=== PATIENT | female | born 1980 ===

== ENCOUNTER 2018-12-09 08:33 | Inpatient (IN) | payer MEDICAID ==
[2018-12-09] MEDS ORDERED: SUBLIMAZE IV PRN (08:38)
[2018-12-09] MEDS ORDERED: BRETHINE SUB-Q PRN (08:38)
[2018-12-09] MEDS ORDERED: XYLOCAINE 2% INFILTRATI ONE (08:38)
[2018-12-09] MEDS ORDERED: MINERAL OIL PO PRN (08:38)
--- NOTE | 2018-12-09 08:51 | History and Physical Report ---
History of Present Illness Date of examination: 12/09/18 Date of admission: 12/09/18 08:33 Chief complaint: IOL for GDM on insulin History of present illness: EDC Confirmation: 12/22/2018 Past History : 8 Term Births: 4 Premature Births: 0 Living Children: 4 Para: 4 Mult. Births: 0 Prev : 0 Aborta: 3 Elect. Ab: 2 Spont. Ab: 1 # 1 Delivery date: 1999 Weeks Gestation: term Delivery type: Delivery location: [place] Inf[place] Sex: Male weight: 8#11 # 2 Delivery date: 2001 Weeks Gestation: term Delivery type: Delivery location: [place] Sex: Female weight: 6#11 # 3 Delivery date: 2012 Weeks Gestation: term Delivery type: Delivery location: [place] Inf[place] Sex: Female weight: 7#11 # 4 Delivery date: 2014 Weeks Gestation: term Delivery type: Delivery location: [place] Infant Sex: Female weight: 7#11 Risk Factors: Smoked Tobacco Use: Never smoker Smokeless Tobacco Use: Never Passive smoke exposure: no Drug use: no HIV high-risk behavior: no Alcohol use: no Exercise: no Seatbelt use: 100 % Family History Risk Factors: Family History of SC in females < 65 years old: no Family History of SC in males < 55 years old: no Dietary Counseling: pn yes Past Medical History: Fibroids Past Surgical History: negative Past Medical History Anesthesia Complications: negative Anemia: negative Autoimmune Disorder: negative Bleeding Disorder: negative Blood Transfusions: negative Breast Disease: negative Diabetes: negative Heart Disease: negative Hypertension: negative Hepatitis/Liver Disease: negative Kidney Disease/UTI: negative Neurologic/Epilepsy/Migraines: negative Phlebitis/Varicosities: negative Psychiatric: negative Pulmonary Disease/Asthma: negative Thyroid Disease: negative Hospitalizations: negative Surgery (Non-window treatment installer): negative Abnormal PAP: negative Family Hx: Mother - HTN father - DM Stomach cancer- maternal aunt 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 Infection History Hx of STD: none HIV Risk Eval: no Hepatitis B Risk Eval: low risk Varicella/Chicken Pox Status: Previous Disease Genetic History ADVANCED MATERNAL AGE Congenital Heart Defect: Mom: no Dad: no Adriana Disease: Mom: no Dad: no Thalassemia Mom: no Dad: no Neural Tube Defect Mom: no Dad: no Down's Syndrome Mom: no Dad: no Abimael-Sachs Mom: no Dad: no Sickle Cell Disease/Trait Mom: no Dad: no Hemophilia Mom: no Dad: no Muscular Dystrophy Mom: no Dad: no Cystic Fibrosis Mom: no Dad: no [place] Chorea Mom: no Dad: no Mental Retardation Mom: no Dad: no Fragile X Mom: no Dad: no Other Genetic/Chromosomal Disorder Mom: no Dad: no Child w/other defect Mom: no Dad: no Enviromental Exposures Xray Exposure: no Medication, drug, or alcohol use since LMP: no Chemical/Other Exposure: no Exposure to Cat Liter: no Hx of Parvovirus (Fifth Disease): no Occupational Exposure to Children: none Active Medications: None Current Allergies (reviewed today): No known allergies Past History Past Medical History: other (see HPI) Past Surgical History: other (see HPI) 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) Family/Genetic History: other (see HPI) - Obstetrical History Expected Date of Delivery: 12/22/18 Actual Gestation: 38 Week(s) 1 Day(s) : 8 Para: 4 Hx # Term Pregnancies: 4 Number of Pregnancies: 0 Spontaneous Abortions: 1 Induced : 2 Number of Living Children: 4 Medications and Allergies Allergies Allergy/AdvReac Type Severity Reaction Status Date / Time No Known Allergies Allergy Unverified 12/09/18 10:01 Home Medications Medication Instructions Recorded Confirmed Last Taken Type Insulin NPH Human Isophane 5 1000units SC ACHS 12/09/18 12/09/18 12/08/18 17:10 History [Humulin N] Insulin Regular, Human [Humulin R] 5 1000units SC AC 12/09/18 12/09/18 12/08/18 17:00 History Multivitamin Tablet 1 tab PO DAILY 12/09/18 12/09/18 12/08/18 10:00 History 1 Active Meds: Active Medications Ephedrine Sulfate (Ephedrine Sulfate) 10 mg IV Q2M PRN PRN Reason: Hypotension Fentanyl (Sublimaze) 100 mcg IV Q2H PRN PRN Reason: Labor Pain Lactated Ringer's (Lactated Ringers) 1,000 mls @ 125 mls/hr IV DIRECT ERIKA Oxytocin/Sodium Chloride (Pitocin/Ns 20 Unit/1000ml Drip) 20 units in 1,000 mls @ 125 mls/hr IV DIRECT ERIKA Oxytocin/Sodium Chloride (Pitocin/Ns 30 Unit/500ml) 30 units in 500 mls @ 1 mls/hr IV TITR ERIKA; Protocol Oxytocin/Sodium Chloride (Pitocin/Ns 30 Unit/500ml) 30 units in 500 mls @ 4 mls/hr IV TITR ERIKA; Protocol Ampicillin Sodium (Polycillin/Ns 2 Gm/100 Ml) 2 gm in 100 mls @ 100 mls/hr IV ONCE ONE; Protocol Stop: 12/09/18 09:59 Ampicillin Sodium (Ampicillin/Ns 1 Gm/50 Ml) 1 gm in 50 mls @ 100 mls/hr IV Q4HR ERIKA; Protocol Lidocaine (Xylocaine 2%) 20 ml INFILTRATI ONCE ONE Stop: 12/09/18 08:39 Mineral Oil (Mineral Oil) 30 ml PO QHS PRN PRN Reason: Constipation Terbutaline Sulfate (Brethine) 0.25 mg SUB-Q ONCE PRN PRN Reason: Hyperstimulation/Hypertonicity Review of Systems All systems: negative - Physical Exam Breasts: Positive: normal Cardiovascular: Regular rate Lungs: Positive: Clear to auscultation, Normal air movement Abdomen: Positive: normal appearance, soft Genitourinary (Female): Positive: normal external genitalia, normal perenium Vulva: both: normal Vagina: Positive: normal moisture Uterus: Positive: normal size Anus/Rectum: Positive: normal perianal skin Extremities: Positive: normal Deep Tendon Reflex Grade: Normal +2 - Obstetrical FHR: category 1 Uterine Contraction Monitor Mode: External Cervical Dilatation: 1 Cervical Effacement Percentage: 30 station: -2 Uterine Contraction Pattern: Irregular Uterine Tone Measurement Phase: Resting Results Result Diagrams: 12/09/18 10:10 All other labs normal. Assessment and Plan 38y/o 2 38+1 weeks for IOL d/t GDM on insulin. GBS +. Reviewed pplan of care and potential for serial IOL based on unfavorable cervix. Admission orders in EMR. pt verbalizes understanding, all questions addressed. - Patient Problems (1) GBS (group B Streptococcus carrier), +RV culture, currently Current Visit: Yes Status: Acute Plan to address problem: Ampicillin q4h until delivery (2) Gestational diabetes mellitus (GDM) requiring insulin Current Visit: Yes Status: Acute Plan to address problem: accucheck q2h while in labor (3) 38 weeks gestation of Current Visit: Yes Status: Acute
[2018-12-09] MEDS ORDERED: PITOCin/NS 30 UNIT/500ML 30 UNITS/500 ML BAG IV SCH (09:00)
[2018-12-09] MEDS ORDERED: PITOCin/NS 20 UNIT/1000ML DRIP 20 UNITS/1,000 ML BAG IV SCH (09:00)
[2018-12-09] MEDS ORDERED: AMPICILLIN/NS 2 GM/100 ML 2 GM/100 ML BAG IV ONE (09:00)
[2018-12-09 10:26] LABS: Hematocrit 34.5 % (30.3-42.9); Hemoglobin 11.7 gm/dl (10.1-14.3); Mean Corpuscular HGB Conc 34 % (30-34); Mean Corpuscular Volume 89 fl (79-97); Platelet Count 219 K/mm3 (140-440); Red Blood Count 3.88 M/mm3 (3.65-5.03); Red Cell Distribution Width 14.1 % (13.2-15.2)
[2018-12-09] MEDS: LACTATED RINGERS 1,000 ML IV SCH ×3 (10:39→18:17)
[2018-12-09] MEDS: PITOCin/NS 30 UNIT/500ML 30 UNITS/500 ML BAG IV SCH ×5 (10:47→13:35)
[2018-12-09] MEDS: AMPICILLIN/NS 1 GM/50 ML 1 GM/50 ML BAG IV SCH ×2 (14:58→19:16)
--- NOTE | 2018-12-09 17:13 | Progress Note ---
Assessment and Plan patient rates pain @ 8/10, pitocin currently @ 20mU. Discussed options for for patient to rest, eat dinner and shower then low dose pitocin tonight or continue with pitocin. Patient desires to continue pitocin and AROM. Pt desires epidural. AROM - clear fluid, ISE and IUP placed without difficulty. IVF open for pre- epidural bolus. nurse instructed to check blood sugar q2h. - Patient Problems (1) GBS (group B Streptococcus carrier), +RV culture, currently Current Visit: Yes Status: Acute (2) Gestational diabetes mellitus (GDM) requiring insulin Current Visit: Yes Status: Acute (3) 38 weeks gestation of Current Visit: Yes Status: Acute Subjective - Subjective Date of service: 12/09/18 Principal diagnosis: IUP @ 38+1, GDM on insulin, GBS + Interval history: EDC Confirmation: 12/22/2018 Past History : 8 Term Births: 4 Premature Births: 0 Living Children: 4 Para: 4 Mult. Births: 0 Prev : 0 Aborta: 3 Elect. Ab: 2 Spont. Ab: 1 # 1 Delivery date: 1999 Weeks Gestation: term Delivery type: Delivery location: [place] Sex: Male weight: 8#11 # 2 Delivery date: 2001 Weeks Gestation: term Delivery type: Delivery location: [place] Sex: Female weight: 6#11 # 3 Delivery date: 2012 Weeks Gestation: term Delivery type: Delivery location: [place] Sex: Female weight: 7#11 # 4 Delivery date: 2014 Weeks Gestation: term Delivery type: Delivery location: [place] Infant Sex: Female weight: 7#11 Risk Factors: Smoked Tobacco Use: Never smoker Smokeless Tobacco Use: Never Passive smoke exposure: no Drug use: no HIV high-risk behavior: no Alcohol use: no Exercise: no Seatbelt use: 100 % Family History Risk Factors: Family History of [place] in females < 65 years old: no Family History of OK in males < 55 years old: no Dietary Counseling: pn yes Past Medical History: Fibroids Past Surgical History: negative Past Medical History Anesthesia Complications: negative Anemia: negative Autoimmune Disorder: negative Bleeding Disorder: negative Blood Transfusions: negative Breast Disease: negative Diabetes: negative Heart Disease: negative Hypertension: negative Hepatitis/Liver Disease: negative Kidney Disease/UTI: negative Neurologic/Epilepsy/Migraines: negative Phlebitis/Varicosities: negative Psychiatric: negative Pulmonary Disease/Asthma: negative Thyroid Disease: negative Hospitalizations: negative Surgery (Non-etcher printed circuit boards): negative Abnormal PAP: negative Family Hx: Mother - HTN father - DM Stomach cancer- maternal aunt 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 Infection History Hx of STD: none HIV Risk Eval: no Hepatitis B Risk Eval: low risk Varicella/Chicken Pox Status: Previous Disease Genetic History ADVANCED MATERNAL AGE Congenital Heart Defect: Mom: no Dad: no Adriana Disease: Mom: no Dad: no Thalassemia Mom: no Dad: no Neural Tube Defect Mom: no Dad: no Down's Syndrome Mom: no Dad: no Abimael-Sachs Mom: no Dad: no Sickle Cell Disease/Trait Mom: no Dad: no Hemophilia Mom: no Dad: no Muscular Dystrophy Mom: no Dad: no Cystic Fibrosis Mom: no Dad: no [place] Chorea Mom: no Dad: no Mental Retardation Mom: no Dad: no Fragile X Mom: no Dad: no Other Genetic/Chromosomal Disorder Mom: no Dad: no Child w/other defect Mom: no Dad: no Enviromental Exposures Xray Exposure: no Medication, drug, or alcohol use since LMP: no Chemical/Other Exposure: no Exposure to Cat Liter: no Hx of Parvovirus (Fifth Disease): no Occupational Exposure to Children: none Active Medications: None Current Allergies (reviewed today): No known allergies Patient reports: movement normal, contractions (pt states she is ready for an epidural), no loss of fluid, no vaginal bleeding Objective - Vital Signs Vital Signs: Vital Signs - 12hr 12/09/18 12/09/18 12/09/18 09:09 09:14 09:19 Temperature 98.7 F Pulse Rate 105 H 104 H 112 H Respiratory 18 Rate Blood Pressure 107/63 Blood Pressure 107/63 [Left] O2 Sat by Pulse 97 94 93 Oximetry 12/09/18 12/09/18 12/09/18 09:22 09:24 09:28 Temperature Pulse Rate 106 H 112 H 116 H Respiratory Rate Blood Pressure Blood Pressure [Left] O2 Sat by Pulse 94 94 93 Oximetry 12/09/18 12/09/18 12/09/18 09:29 09:34 09:37 Temperature Pulse Rate 114 H 109 H 104 H Respiratory Rate Blood Pressure Blood Pressure [Left] O2 Sat by Pulse 95 95 94 Oximetry 12/09/18 12/09/18 12/09/18 09:39 09:42 09:44 Temperature Pulse Rate 114 H 104 H 104 H Respiratory Rate Blood Pressure Blood Pressure [Left] O2 Sat by Pulse 94 94 96 Oximetry 12/09/18 12/09/18 12/09/18 09:48 09:49 09:54 Temperature Pulse Rate 104 H 111 H 105 H Respiratory Rate Blood Pressure Blood Pressure [Left] O2 Sat by Pulse 94 95 94 Oximetry 12/09/18 12/09/18 12/09/18 09:59 10:12 10:13 Temperature Pulse Rate 112 H 96 H 119 H Respiratory Rate Blood Pressure 125/76 Blood Pressure [Left] O2 Sat by Pulse 94 91 96 Oximetry 12/09/18 12/09/18 12/09/18 10:18 10:20 10:23 Temperature Pulse Rate 104 H 105 H 106 H Respiratory Rate Blood Pressure Blood Pressure [Left] O2 Sat by Pulse 96 93 95 Oximetry 12/09/18 12/09/18 12/09/18 10:25 10:28 10:31 Temperature Pulse Rate 102 H 102 H 106 H Respiratory Rate Blood Pressure Blood Pressure [Left] O2 Sat by Pulse 94 96 93 Oximetry 12/09/18 12/09/18 12/09/18 10:33 10:37 10:38 Temperature Pulse Rate 105 H 94 H 97 H Respiratory Rate Blood Pressure Blood Pressure [Left] O2 Sat by Pulse 95 94 95 Oximetry 12/09/18 12/09/18 12/09/18 10:43 10:48 10:53 Temperature Pulse Rate 103 H 97 H 101 H Respiratory Rate Blood Pressure Blood Pressure [Left] O2 Sat by Pulse 94 94 95 Oximetry 12/09/18 12/09/18 12/09/18 10:54 10:58 11:11 Temperature Pulse Rate 100 H 102 H 106 H Respiratory Rate Blood Pressure Blood Pressure [Left] O2 Sat by Pulse 94 94 97 Oximetry 12/09/18 12/09/18 12/09/18 11:16 11:17 11:21 Temperature Pulse Rate 107 H 94 H 100 H Respiratory Rate Blood Pressure Blood Pressure [Left] O2 Sat by Pulse 96 94 95 Oximetry 12/09/18 12/09/18 12/09/18 11:23 11:26 11:30 Temperature Pulse Rate 103 H 99 H 104 H Respiratory Rate Blood Pressure Blood Pressure [Left] O2 Sat by Pulse 94 95 93 Oximetry 12/09/18 12/09/18 12/09/18 11:31 11:36 11:41 Temperature Pulse Rate 97 H 111 H 101 H Respiratory Rate Blood Pressure Blood Pressure [Left] O2 Sat by Pulse 96 96 96 Oximetry 12/09/18 12/09/18 12/09/18 11:43 11:46 11:51 Temperature Pulse Rate 91 H 102 H 94 H Respiratory Rate Blood Pressure Blood Pressure [Left] O2 Sat by Pulse 94 96 97 Oximetry 12/09/18 12/09/18 12/09/18 11:55 11:56 12:01 Temperature Pulse Rate 98 H 101 H 95 H Respiratory Rate Blood Pressure Blood Pressure [Left] O2 Sat by Pulse 94 96 97 Oximetry 12/09/18 12/09/18 12/09/18 12:04 12:06 12:10 Temperature Pulse Rate 101 H 98 H 100 H Respiratory Rate Blood Pressure 120/69 Blood Pressure [Left] O2 Sat by Pulse 93 97 Oximetry 12/09/18 12/09/18 12/09/18 12:11 12:15 12:16 Temperature Pulse Rate 102 H 105 H 86 Respiratory Rate Blood Pressure Blood Pressure [Left] O2 Sat by Pulse 96 94 95 Oximetry 12/09/18 12/09/18 12/09/18 12:21 12:26 12:31 Temperature Pulse Rate 90 92 H 95 H Respiratory Rate Blood Pressure Blood Pressure [Left] O2 Sat by Pulse 96 94 94 Oximetry 12/09/18 12/09/18 12/09/18 12:36 12:41 12:42 Temperature Pulse Rate 103 H 92 H 99 H Respiratory Rate Blood Pressure Blood Pressure [Left] O2 Sat by Pulse 96 96 94 Oximetry 12/09/18 12/09/18 12/09/18 12:46 12:51 12:52 Temperature Pulse Rate 87 89 90 Respiratory Rate Blood Pressure Blood Pressure [Left] O2 Sat by Pulse 97 95 94 Oximetry 12/09/18 12/09/18 12/09/18 12:56 12:58 13:01 Temperature Pulse Rate 94 H 94 H 94 H Respiratory Rate Blood Pressure Blood Pressure [Left] O2 Sat by Pulse 94 94 96 Oximetry 12/09/18 12/09/18 12/09/18 13:06 13:11 13:16 Temperature Pulse Rate 98 H 102 H 85 Respiratory Rate Blood Pressure 132/93 Blood Pressure [Left] O2 Sat by Pulse 95 93 96 Oximetry 12/09/18 12/09/18 12/09/18 13:21 13:31 13:33 Temperature Pulse Rate 99 H 86 87 Respiratory Rate Blood Pressure Blood Pressure [Left] O2 Sat by Pulse 95 96 94 Oximetry 12/09/18 12/09/18 12/09/18 13:36 13:41 13:46 Temperature Pulse Rate 90 88 87 Respiratory Rate Blood Pressure Blood Pressure [Left] O2 Sat by Pulse 95 96 95 Oximetry 12/09/18 12/09/18 12/09/18 13:51 13:55 13:56 Temperature Pulse Rate 89 97 H 94 H Respiratory Rate Blood Pressure Blood Pressure [Left] O2 Sat by Pulse 96 94 95 Oximetry 12/09/18 12/09/18 12/09/18 14:01 14:05 14:06 Temperature 98.4 F Pulse Rate 98 H 92 H 87 Respiratory Rate Blood Pressure Blood Pressure [Left] O2 Sat by Pulse 96 97 Oximetry 12/09/18 12/09/18 12/09/18 14:11 14:16 14:20 Temperature Pulse Rate 92 H 86 96 H Respiratory Rate Blood Pressure 129/75 Blood Pressure [Left] O2 Sat by Pulse 92 97 94 Oximetry 12/09/18 12/09/18 12/09/18 14:21 14:26 14:30 Temperature Pulse Rate 85 96 H 85 Respiratory Rate Blood Pressure Blood Pressure [Left] O2 Sat by Pulse 94 95 94 Oximetry 12/09/18 12/09/18 12/09/18 14:31 14:36 14:37 Temperature Pulse Rate 106 H 89 89 Respiratory Rate Blood Pressure Blood Pressure [Left] O2 Sat by Pulse 98 95 94 Oximetry 12/09/18 12/09/18 12/09/18 14:41 14:42 14:46 Temperature Pulse Rate 89 83 86 Respiratory Rate Blood Pressure Blood Pressure [Left] O2 Sat by Pulse 96 94 94 Oximetry 12/09/18 12/09/18 12/09/18 14:48 14:51 14:53 Temperature Pulse Rate 81 91 H 85 Respiratory Rate Blood Pressure Blood Pressure [Left] O2 Sat by Pulse 94 94 94 Oximetry 12/09/18 12/09/18 12/09/18 14:56 14:58 15:01 Temperature Pulse Rate 85 86 87 Respiratory Rate Blood Pressure Blood Pressure [Left] O2 Sat by Pulse 95 94 95 Oximetry 12/09/18 12/09/18 12/09/18 15:04 15:06 15:10 Temperature Pulse Rate 92 H 83 99 H Respiratory Rate Blood Pressure 130/79 Blood Pressure [Left] O2 Sat by Pulse 91 94 92 Oximetry 12/09/18 12/09/18 12/09/18 15:11 15:16 15:21 Temperature Pulse Rate 91 H 93 H 79 Respiratory Rate Blood Pressure Blood Pressure [Left] O2 Sat by Pulse 95 94 93 Oximetry 12/09/18 12/09/18 12/09/18 15:26 15:31 15:36 Temperature Pulse Rate 103 H 84 85 Respiratory Rate Blood Pressure Blood Pressure [Left] O2 Sat by Pulse 93 94 94 Oximetry 12/09/18 12/09/18 12/09/18 15:39 15:41 15:53 Temperature Pulse Rate 95 H 96 H 106 H Respiratory Rate Blood Pressure Blood Pressure [Left] O2 Sat by Pulse 94 95 97 Oximetry 12/09/18 12/09/18 12/09/18 15:58 16:03 16:08 Temperature Pulse Rate 85 87 85 Respiratory Rate Blood Pressure Blood Pressure [Left] O2 Sat by Pulse 96 96 96 Oximetry 12/09/18 12/09/18 12/09/18 16:10 16:11 16:13 Temperature Pulse Rate 98 H 80 92 H Respiratory Rate Blood Pressure 142/73 126/59 Blood Pressure [Left] O2 Sat by Pulse 92 97 Oximetry 12/09/18 12/09/18 12/09/18 16:18 16:23 16:28 Temperature Pulse Rate 83 86 101 H Respiratory Rate Blood Pressure Blood Pressure [Left] O2 Sat by Pulse 97 95 96 Oximetry 12/09/18 12/09/18 12/09/18 16:33 16:37 16:38 Temperature Pulse Rate 91 H 97 H 105 H Respiratory Rate Blood Pressure Blood Pressure [Left] O2 Sat by Pulse 97 94 97 Oximetry 12/09/18 12/09/18 12/09/18 16:43 16:48 16:53 Temperature Pulse Rate 92 H 98 H 104 H Respiratory Rate Blood Pressure Blood Pressure [Left] O2 Sat by Pulse 98 97 96 Oximetry 12/09/18 16:58 Temperature Pulse Rate 104 H Respiratory Rate Blood Pressure Blood Pressure [Left] O2 Sat by Pulse 97 Oximetry - Exam Breasts: normal Cardiovascular: Regular rate Lungs: Clear to auscultation, Normal air movement Abdomen: Present: normal appearance, soft Vulva: both: normal Uterus: Present: normal FHR: auscultation normal Uterine Contraction Monitor Mode: Internal Cervical Dilatation: 3 Cervical Effacement Percentage: 80 station: -1 Uterine Contraction Frequency (min): 2-3 Uterine Contraction Duration: 60 Uterine Contraction Pattern: Regular Uterine Tone Measurement Phase: Contraction Uterine Contraction Intensity: Strong/Firm Uterine Tone Measurement (Intensity): 70 Extremities: normal Deep Tendon Reflex Grade: Normal +2 - Labs Labs: Laboratory Results - last 24 hr 12/09/18 12/09/18 12/09/18 10:10 10:10 10:10 WBC 8.7 RBC 3.88 Hgb 11.7 Hct 34.5 MCV 89 MCH 30 MCHC 34 RDW 14.1 Plt Count 219 POC Glucose RPR Nonreactive Blood Type O POSITIVE Antibody Screen Negative 12/09/18 11:49 WBC RBC Hgb Hct MCV MCH MCHC RDW Plt Count POC Glucose 94 RPR Blood Type Antibody Screen
[2018-12-09] MEDS ORDERED: NARCAN 2 MG/2 ML IV PRN (17:44)
--- NOTE | 2018-12-09 17:47 | Anesthesia Consultation ---
Anesthesia Consult and Med Hx - Airway Anesthetic Teeth Evaluation: Good ROM Head & Neck: Adequate Mental/Hyoid Distance: Adequate Mallampati Class: Class I Intubation Access Assessment: Good - Pulmonary Exam CTA: Yes - Cardiac Exam Cardiac Exam: RRR - Pre-Operative Health Status ASA Pre-Surgery Classification: ASA2 Proposed Anesthetic Plan: Epidural - Pulmonary Hx Asthma: No COPD: No Hx Pneumonia: No - Cardiovascular System Hx Hypertension: No - Central Nervous System Hx Seizures: No Hx Psychiatric Problems: No - Endocrine Hx Renal Disease: No Hx End Stage Renal Disease: No Hx Insulin Dependent Diabetes: Yes (during ) Hx Hypothyroidism: No Hx Hyperthyroidism: No - Hematic Hx Anemia: No Hx Sickle Cell Disease: No - Other Systems Hx Alcohol Use: No
[2018-12-09] MEDS ORDERED: MARCAINE 0.25% INFILTRATI ONE (17:51)
[2018-12-09] MEDS ORDERED: fentaNYL-BUPIV 2 MCG/ML-0.125% 200 MCG/100 ML BAG EPIDURAL SCH (18:00)
--- NOTE | 2018-12-09 18:35 | Progress Note ---
Assessment and Plan pt comfortable s/p epidural, SVE now 4.5/85/-1 with clear fluid. Plan to continue titrating pitocin as needed. Anticipate . - Patient Problems (1) GBS (group B Streptococcus carrier), +RV culture, currently Current Visit: Yes Status: Acute (2) Gestational diabetes mellitus (GDM) requiring insulin Current Visit: Yes Status: Acute (3) 38 weeks gestation of Current Visit: Yes Status: Acute Subjective - Subjective Date of service: 12/09/18 Principal diagnosis: IUP @ 38+1, GDM on insulin, GBS + Interval history: EDC Confirmation: 12/22/2018 Past History : 8 Term Births: 4 Premature Births: 0 Living Children: 4 Para: 4 Mult. Births: 0 Prev : 0 Aborta: 3 Elect. Ab: 2 Spont. Ab: 1 # 1 Delivery date: 1999 Weeks Gestation: term Delivery type: Delivery location: [place] Sex: Male weight: 8#11 # 2 Delivery date: 2001 Weeks Gestation: term Delivery type: Delivery location: [place] Sex: Female weight: 6#11 # 3 Delivery date: 2012 Weeks Gestation: term Delivery type: Delivery location: [place] Sex: Female weight: 7#11 # 4 Delivery date: 2014 Weeks Gestation: term Delivery type: Delivery location: [place] Sex: Female weight: 7#11 Risk Factors: Smoked Tobacco Use: Never smoker Smokeless Tobacco Use: Never Passive smoke exposure: no Drug use: no HIV high-risk behavior: no Alcohol use: no Exercise: no Seatbelt use: 100 % Family History Risk Factors: Family History of NE in females < 65 years old: no Family History of NE in males < 55 years old: no Dietary Counseling: pn yes Past Medical History: Fibroids Past Surgical History: negative Past Medical History Anesthesia Complications: negative Anemia: negative Autoimmune Disorder: negative Bleeding Disorder: negative Blood Transfusions: negative Breast Disease: negative Diabetes: negative Heart Disease: negative Hypertension: negative Hepatitis/Liver Disease: negative Kidney Disease/UTI: negative Neurologic/Epilepsy/Migraines: negative Phlebitis/Varicosities: negative Psychiatric: negative Pulmonary Disease/Asthma: negative Thyroid Disease: negative Hospitalizations: negative Surgery (Non-webmethods architect): negative Abnormal PAP: negative Family Hx: Mother - HTN father - DM Stomach cancer- maternal aunt 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 Infection History Hx of STD: none HIV Risk Eval: no Hepatitis B Risk Eval: low risk Varicella/Chicken Pox Status: Previous Disease Genetic History ADVANCED MATERNAL AGE Congenital Heart Defect: Mom: no Dad: no Adriana Disease: Mom: no Dad: no Thalassemia Mom: no Dad: no Neural Tube Defect Mom: no Dad: no Down's Syndrome Mom: no Dad: no Abimael-Sachs Mom: no Dad: no Sickle Cell Disease/Trait Mom: no Dad: no Hemophilia Mom: no Dad: no Muscular Dystrophy Mom: no Dad: no Cystic Fibrosis Mom: no Dad: no [place] Chorea Mom: no Dad: no Mental Retardation Mom: no Dad: no Fragile X Mom: no Dad: no Other Genetic/Chromosomal Disorder Mom: no Dad: no Child w/other defect Mom: no Dad: no Enviromental Exposures Xray Exposure: no Medication, drug, or alcohol use since LMP: no Chemical/Other Exposure: no Exposure to Cat Liter: no Hx of Parvovirus (Fifth Disease): no Occupational Exposure to Children: none Active Medications: None Current Allergies (reviewed today): No known allergies Patient reports: no new complaints (Comfortable s/p epidural) Objective - Vital Signs Vital Signs: Vital Signs - 12hr 12/09/18 12/09/18 12/09/18 09:09 09:14 09:19 Temperature 98.7 F Pulse Rate 105 H 104 H 112 H Respiratory 18 Rate Blood Pressure 107/63 Blood Pressure 107/63 [Left] O2 Sat by Pulse 97 94 93 Oximetry 12/09/18 12/09/18 12/09/18 09:22 09:24 09:28 Temperature Pulse Rate 106 H 112 H 116 H Respiratory Rate Blood Pressure Blood Pressure [Left] O2 Sat by Pulse 94 94 93 Oximetry 12/09/18 12/09/18 12/09/18 09:29 09:34 09:37 Temperature Pulse Rate 114 H 109 H 104 H Respiratory Rate Blood Pressure Blood Pressure [Left] O2 Sat by Pulse 95 95 94 Oximetry 12/09/18 12/09/18 12/09/18 09:39 09:42 09:44 Temperature Pulse Rate 114 H 104 H 104 H Respiratory Rate Blood Pressure Blood Pressure [Left] O2 Sat by Pulse 94 94 96 Oximetry 12/09/18 12/09/18 12/09/18 09:48 09:49 09:54 Temperature Pulse Rate 104 H 111 H 105 H Respiratory Rate Blood Pressure Blood Pressure [Left] O2 Sat by Pulse 94 95 94 Oximetry 12/09/18 12/09/18 12/09/18 09:59 10:12 10:13 Temperature Pulse Rate 112 H 96 H 119 H Respiratory Rate Blood Pressure 125/76 Blood Pressure [Left] O2 Sat by Pulse 94 91 96 Oximetry 12/09/18 12/09/18 12/09/18 10:18 10:20 10:23 Temperature Pulse Rate 104 H 105 H 106 H Respiratory Rate Blood Pressure Blood Pressure [Left] O2 Sat by Pulse 96 93 95 Oximetry 12/09/18 12/09/18 12/09/18 10:25 10:28 10:31 Temperature Pulse Rate 102 H 102 H 106 H Respiratory Rate Blood Pressure Blood Pressure [Left] O2 Sat by Pulse 94 96 93 Oximetry 12/09/18 12/09/18 12/09/18 10:33 10:37 10:38 Temperature Pulse Rate 105 H 94 H 97 H Respiratory Rate Blood Pressure Blood Pressure [Left] O2 Sat by Pulse 95 94 95 Oximetry 12/09/18 12/09/18 12/09/18 10:43 10:48 10:53 Temperature Pulse Rate 103 H 97 H 101 H Respiratory Rate Blood Pressure Blood Pressure [Left] O2 Sat by Pulse 94 94 95 Oximetry 12/09/18 12/09/18 12/09/18 10:54 10:58 11:11 Temperature Pulse Rate 100 H 102 H 106 H Respiratory Rate Blood Pressure Blood Pressure [Left] O2 Sat by Pulse 94 94 97 Oximetry 12/09/18 12/09/18 12/09/18 11:16 11:17 11:21 Temperature Pulse Rate 107 H 94 H 100 H Respiratory Rate Blood Pressure Blood Pressure [Left] O2 Sat by Pulse 96 94 95 Oximetry 12/09/18 12/09/18 12/09/18 11:23 11:26 11:30 Temperature Pulse Rate 103 H 99 H 104 H Respiratory Rate Blood Pressure Blood Pressure [Left] O2 Sat by Pulse 94 95 93 Oximetry 12/09/18 12/09/18 12/09/18 11:31 11:36 11:41 Temperature Pulse Rate 97 H 111 H 101 H Respiratory Rate Blood Pressure Blood Pressure [Left] O2 Sat by Pulse 96 96 96 Oximetry 12/09/18 12/09/18 12/09/18 11:43 11:46 11:51 Temperature Pulse Rate 91 H 102 H 94 H Respiratory Rate Blood Pressure Blood Pressure [Left] O2 Sat by Pulse 94 96 97 Oximetry 12/09/18 12/09/18 12/09/18 11:55 11:56 12:01 Temperature Pulse Rate 98 H 101 H 95 H Respiratory Rate Blood Pressure Blood Pressure [Left] O2 Sat by Pulse 94 96 97 Oximetry 12/09/18 12/09/18 12/09/18 12:04 12:06 12:10 Temperature Pulse Rate 101 H 98 H 100 H Respiratory Rate Blood Pressure 120/69 Blood Pressure [Left] O2 Sat by Pulse 93 97 Oximetry 12/09/18 12/09/18 12/09/18 12:11 12:15 12:16 Temperature Pulse Rate 102 H 105 H 86 Respiratory Rate Blood Pressure Blood Pressure [Left] O2 Sat by Pulse 96 94 95 Oximetry 12/09/18 12/09/18 12/09/18 12:21 12:26 12:31 Temperature Pulse Rate 90 92 H 95 H Respiratory Rate Blood Pressure Blood Pressure [Left] O2 Sat by Pulse 96 94 94 Oximetry 12/09/18 12/09/18 12/09/18 12:36 12:41 12:42 Temperature Pulse Rate 103 H 92 H 99 H Respiratory Rate Blood Pressure Blood Pressure [Left] O2 Sat by Pulse 96 96 94 Oximetry 12/09/18 12/09/18 12/09/18 12:46 12:51 12:52 Temperature Pulse Rate 87 89 90 Respiratory Rate Blood Pressure Blood Pressure [Left] O2 Sat by Pulse 97 95 94 Oximetry 12/09/18 12/09/18 12/09/18 12:56 12:58 13:01 Temperature Pulse Rate 94 H 94 H 94 H Respiratory Rate Blood Pressure Blood Pressure [Left] O2 Sat by Pulse 94 94 96 Oximetry 12/09/18 12/09/18 12/09/18 13:06 13:11 13:16 Temperature Pulse Rate 98 H 102 H 85 Respiratory Rate Blood Pressure 132/93 Blood Pressure [Left] O2 Sat by Pulse 95 93 96 Oximetry 12/09/18 12/09/18 12/09/18 13:21 13:31 13:33 Temperature Pulse Rate 99 H 86 87 Respiratory Rate Blood Pressure Blood Pressure [Left] O2 Sat by Pulse 95 96 94 Oximetry 04/25/19 04/25/19 04/25/19 13:36 13:41 13:46 Temperature Pulse Rate 90 88 87 Respiratory Rate Blood Pressure Blood Pressure [Left] O2 Sat by Pulse 95 96 95 Oximetry 12/09/18 12/09/18 12/09/18 13:51 13:55 13:56 Temperature Pulse Rate 89 97 H 94 H Respiratory Rate Blood Pressure Blood Pressure [Left] O2 Sat by Pulse 96 94 95 Oximetry 12/09/18 12/09/18 12/09/18 14:01 14:05 14:06 Temperature 98.4 F Pulse Rate 98 H 92 H 87 Respiratory Rate Blood Pressure Blood Pressure [Left] O2 Sat by Pulse 96 97 Oximetry 12/09/18 12/09/18 12/09/18 14:11 14:16 14:20 Temperature Pulse Rate 92 H 86 96 H Respiratory Rate Blood Pressure 129/75 Blood Pressure [Left] O2 Sat by Pulse 92 97 94 Oximetry 12/09/18 12/09/18 12/09/18 14:21 14:26 14:30 Temperature Pulse Rate 85 96 H 85 Respiratory Rate Blood Pressure Blood Pressure [Left] O2 Sat by Pulse 94 95 94 Oximetry 12/09/18 12/09/18 12/09/18 14:31 14:36 14:37 Temperature Pulse Rate 106 H 89 89 Respiratory Rate Blood Pressure Blood Pressure [Left] O2 Sat by Pulse 98 95 94 Oximetry 12/09/18 12/09/18 12/09/18 14:41 14:42 14:46 Temperature Pulse Rate 89 83 86 Respiratory Rate Blood Pressure Blood Pressure [Left] O2 Sat by Pulse 96 94 94 Oximetry 12/09/18 12/09/18 12/09/18 14:48 14:51 14:53 Temperature Pulse Rate 81 91 H 85 Respiratory Rate Blood Pressure Blood Pressure [Left] O2 Sat by Pulse 94 94 94 Oximetry 12/09/18 12/09/18 12/09/18 14:56 14:58 15:01 Temperature Pulse Rate 85 86 87 Respiratory Rate Blood Pressure Blood Pressure [Left] O2 Sat by Pulse 95 94 95 Oximetry 12/09/18 12/09/18 12/09/18 15:04 15:06 15:10 Temperature Pulse Rate 92 H 83 99 H Respiratory Rate Blood Pressure 130/79 Blood Pressure [Left] O2 Sat by Pulse 91 94 92 Oximetry 12/09/18 12/09/18 12/09/18 15:11 15:16 15:21 Temperature Pulse Rate 91 H 93 H 79 Respiratory Rate Blood Pressure Blood Pressure [Left] O2 Sat by Pulse 95 94 93 Oximetry 12/09/18 12/09/18 12/09/18 15:26 15:31 15:36 Temperature Pulse Rate 103 H 84 85 Respiratory Rate Blood Pressure Blood Pressure [Left] O2 Sat by Pulse 93 94 94 Oximetry 12/09/18 12/09/18 12/09/18 15:39 15:41 15:53 Temperature Pulse Rate 95 H 96 H 106 H Respiratory Rate Blood Pressure Blood Pressure [Left] O2 Sat by Pulse 94 95 97 Oximetry 12/09/18 12/09/18 12/09/18 15:58 16:03 16:08 Temperature Pulse Rate 85 87 85 Respiratory Rate Blood Pressure Blood Pressure [Left] O2 Sat by Pulse 96 96 96 Oximetry 12/09/18 12/09/18 12/09/18 16:10 16:11 16:13 Temperature Pulse Rate 98 H 80 92 H Respiratory Rate Blood Pressure 142/73 126/59 Blood Pressure [Left] O2 Sat by Pulse 92 97 Oximetry 12/09/18 12/09/18 12/09/18 16:18 16:23 16:28 Temperature Pulse Rate 83 86 101 H Respiratory Rate Blood Pressure Blood Pressure [Left] O2 Sat by Pulse 97 95 96 Oximetry 12/09/18 12/09/18 12/09/18 16:33 16:37 16:38 Temperature Pulse Rate 91 H 97 H 105 H Respiratory Rate Blood Pressure Blood Pressure [Left] O2 Sat by Pulse 97 94 97 Oximetry 12/09/18 12/09/18 12/09/18 16:43 16:48 16:53 Temperature Pulse Rate 92 H 98 H 104 H Respiratory Rate Blood Pressure Blood Pressure [Left] O2 Sat by Pulse 98 97 96 Oximetry 12/09/18 12/09/18 12/09/18 16:58 17:03 17:08 Temperature Pulse Rate 104 H 94 H 100 H Respiratory Rate Blood Pressure Blood Pressure [Left] O2 Sat by Pulse 97 97 97 Oximetry 12/09/18 12/09/18 12/09/18 17:10 17:13 17:18 Temperature Pulse Rate 90 95 H 101 H Respiratory Rate Blood Pressure 139/87 Blood Pressure [Left] O2 Sat by Pulse 97 97 Oximetry 12/09/18 12/09/18 12/09/18 17:23 17:28 17:33 Temperature Pulse Rate 102 H 110 H 102 H Respiratory Rate Blood Pressure Blood Pressure [Left] O2 Sat by Pulse 98 97 98 Oximetry 12/09/18 12/09/18 12/09/18 17:38 17:47 17:52 Temperature Pulse Rate 107 H 103 H 107 H Respiratory Rate Blood Pressure Blood Pressure [Left] O2 Sat by Pulse 97 97 98 Oximetry 12/09/18 12/09/18 12/09/18 17:57 17:59 18:00 Temperature Pulse Rate 107 H 107 H 102 H Respiratory Rate Blood Pressure 156/74 139/68 Blood Pressure [Left] O2 Sat by Pulse 97 Oximetry 12/09/18 12/09/18 12/09/18 18:02 18:04 18:06 Temperature Pulse Rate 105 H 122 H 116 H Respiratory Rate Blood Pressure 141/74 143/82 130/76 Blood Pressure [Left] O2 Sat by Pulse 95 92 Oximetry 12/09/18 12/09/18 12/09/18 18:07 18:08 18:10 Temperature Pulse Rate 109 H 114 H 105 H Respiratory Rate Blood Pressure 135/73 128/74 Blood Pressure [Left] O2 Sat by Pulse 95 Oximetry 12/09/18 12/09/18 12/09/18 18:12 18:14 18:16 Temperature Pulse Rate 117 H 121 H 114 H Respiratory Rate Blood Pressure 118/67 119/69 124/71 Blood Pressure [Left] O2 Sat by Pulse 95 94 Oximetry 12/09/18 12/09/18 12/09/18 18:17 18:18 18:20 Temperature 98.5 F Pulse Rate 102 H 125 H 92 H Respiratory 20 Rate Blood Pressure 115/64 119/68 Blood Pressure [Left] O2 Sat by Pulse 95 Oximetry 12/09/18 12/09/18 12/09/18 18:21 18:22 18:24 Temperature Pulse Rate 101 H 103 H 120 H Respiratory Rate Blood Pressure 114/68 120/76 Blood Pressure [Left] O2 Sat by Pulse 94 94 Oximetry 12/09/18 12/09/18 12/09/18 18:26 18:27 18:28 Temperature Pulse Rate 125 H 118 H 117 H Respiratory Rate Blood Pressure 117/64 110/63 Blood Pressure [Left] O2 Sat by Pulse 94 Oximetry - Exam Breasts: normal Cardiovascular: Regular rate Lungs: Clear to auscultation, Normal air movement Abdomen: Present: normal appearance, soft Vulva: both: normal Uterus: Present: normal FHR: auscultation normal, category 1 Uterine Contraction Monitor Mode: Internal Cervical Dilatation: 4.5 Cervical Effacement Percentage: 85 station: -1 Uterine Contraction Frequency (min): 2-2.5 Uterine Contraction Duration: 60 Uterine Contraction Pattern: Regular Uterine Tone Measurement Phase: Contraction Uterine Contraction Intensity: Strong/Firm Extremities: normal Deep Tendon Reflex Grade: Normal +2 - Labs Labs: Abnormal Labs 12/09/18 17:14 POC Glucose 61 L Laboratory Results - last 24 hr 12/09/18 12/09/18 12/09/18 10:10 10:10 10:10 WBC 8.7 RBC 3.88 Hgb 11.7 Hct 34.5 MCV 89 MCH 30 MCHC 34 RDW 14.1 Plt Count 219 POC Glucose RPR Nonreactive Blood Type O POSITIVE Antibody Screen Negative 12/09/18 12/09/18 11:49 17:14 WBC RBC Hgb Hct MCV MCH MCHC RDW Plt Count POC Glucose 94 61 L RPR Blood Type Antibody Screen
--- NOTE | 2018-12-09 19:51 | Progress Note ---
Assessment and Plan patient c/o feeling rectal pressure with ctx, SVE now 7.5/100/0, head feels asynclitic. Turned to left side. FHT CAT [address] occasional early decels. Dr. Brandt updated. Anticipate . - Patient Problems (1) GBS (group B Streptococcus carrier), +RV culture, currently Current Visit: Yes Status: Acute (2) Gestational diabetes mellitus (GDM) requiring insulin Current Visit: Yes Status: Acute (3) 38 weeks gestation of Current Visit: Yes Status: Acute Subjective - Subjective Date of service: 12/09/18 Principal diagnosis: IUP @ 38+1, GDM on insulin, GBS + Interval history: EDC Confirmation: 12/22/2018 Past History : 8 Term Births: 4 Premature Births: 0 Living Children: 4 Para: 4 Mult. Births: 0 Prev : 0 Aborta: 3 Elect. Ab: 2 Spont. Ab: 1 # 1 Delivery date: 1999 Weeks Gestation: term Delivery type: Delivery location: [place] Sex: Male weight: 8#11 # 2 Delivery date: 2001 Weeks Gestation: term Delivery type: Delivery location: [place] Sex: Female weight: 6#11 # 3 Delivery date: 2012 Weeks Gestation: term Delivery type: Delivery location: [place] Infant Sex: Female weight: 7#11 # 4 Delivery date: 2014 Weeks Gestation: term Delivery type: Delivery location: [place] Sex: Female weight: 7#11 Risk Factors: Smoked Tobacco Use: Never smoker Smokeless Tobacco Use: Never Passive smoke exposure: no Drug use: no HIV high-risk behavior: no Alcohol use: no Exercise: no Seatbelt use: 100 % Family History Risk Factors: Family History of NE in females < 65 years old: no Family History of NE in males < 55 years old: no Dietary Counseling: pn yes Past Medical History: Fibroids Past Surgical History: negative Past Medical History Anesthesia Complications: negative Anemia: negative Autoimmune Disorder: negative Bleeding Disorder: negative Blood Transfusions: negative Breast Disease: negative Diabetes: negative Heart Disease: negative Hypertension: negative Hepatitis/Liver Disease: negative Kidney Disease/UTI: negative Neurologic/Epilepsy/Migraines: negative Phlebitis/Varicosities: negative Psychiatric: negative Pulmonary Disease/Asthma: negative Thyroid Disease: negative Hospitalizations: negative 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 Abnormal PAP: negative Family Hx: Mother - HTN father - DM Stomach cancer- maternal aunt 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 Infection History Hx of STD: none HIV Risk Eval: no Hepatitis B Risk Eval: low risk Varicella/Chicken Pox Status: Previous Disease Genetic History ADVANCED MATERNAL AGE Congenital Heart Defect: Mom: no Dad: no Adriana Disease: Mom: no Dad: no Thalassemia Mom: no Dad: no Neural Tube Defect Mom: no Dad: no Down's Syndrome Mom: no Dad: no Abimael-Sachs Mom: no Dad: no Sickle Cell Disease/Trait Mom: no Dad: no Hemophilia Mom: no Dad: no Muscular Dystrophy Mom: no Dad: no Cystic Fibrosis Mom: no Dad: no [place] Chorea Mom: no Dad: no Mental Retardation Mom: no Dad: no Fragile X Mom: no Dad: no Other Genetic/Chromosomal Disorder Mom: no Dad: no Child w/other defect Mom: no Dad: no Enviromental Exposures Xray Exposure: no Medication, drug, or alcohol use since LMP: no Chemical/Other Exposure: no Exposure to Cat Liter: no Hx of Parvovirus (Fifth Disease): no Occupational Exposure to Children: none Active Medications: None Current Allergies (reviewed today): No known allergies Patient reports: new complaints (c/o rectal pressure with ctx) Objective - Vital Signs Vital Signs: Vital Signs - 12hr 12/09/18 12/09/18 12/09/18 09:09 09:14 09:19 Temperature 98.7 F Pulse Rate 105 H 104 H 112 H Respiratory 18 Rate Blood Pressure 107/63 Blood Pressure 107/63 [Left] O2 Sat by Pulse 97 94 93 Oximetry 12/09/18 12/09/18 12/09/18 09:22 09:24 09:28 Temperature Pulse Rate 106 H 112 H 116 H Respiratory Rate Blood Pressure Blood Pressure [Left] O2 Sat by Pulse 94 94 93 Oximetry 12/09/18 12/09/18 12/09/18 09:29 09:34 09:37 Temperature Pulse Rate 114 H 109 H 104 H Respiratory Rate Blood Pressure Blood Pressure [Left] O2 Sat by Pulse 95 95 94 Oximetry 12/09/18 12/09/18 12/09/18 09:39 09:42 09:44 Temperature Pulse Rate 114 H 104 H 104 H Respiratory Rate Blood Pressure Blood Pressure [Left] O2 Sat by Pulse 94 94 96 Oximetry 04/25/19 04/25/19 04/25/19 09:48 09:49 09:54 Temperature Pulse Rate 104 H 111 H 105 H Respiratory Rate Blood Pressure Blood Pressure [Left] O2 Sat by Pulse 94 95 94 Oximetry 12/09/18 12/09/18 12/09/18 09:59 10:12 10:13 Temperature Pulse Rate 112 H 96 H 119 H Respiratory Rate Blood Pressure 125/76 Blood Pressure [Left] O2 Sat by Pulse 94 91 96 Oximetry 12/09/18 12/09/18 12/09/18 10:18 10:20 10:23 Temperature Pulse Rate 104 H 105 H 106 H Respiratory Rate Blood Pressure Blood Pressure [Left] O2 Sat by Pulse 96 93 95 Oximetry 12/09/18 12/09/18 12/09/18 10:25 10:28 10:31 Temperature Pulse Rate 102 H 102 H 106 H Respiratory Rate Blood Pressure Blood Pressure [Left] O2 Sat by Pulse 94 96 93 Oximetry 12/09/18 12/09/18 12/09/18 10:33 10:37 10:38 Temperature Pulse Rate 105 H 94 H 97 H Respiratory Rate Blood Pressure Blood Pressure [Left] O2 Sat by Pulse 95 94 95 Oximetry 12/09/18 12/09/18 12/09/18 10:43 10:48 10:53 Temperature Pulse Rate 103 H 97 H 101 H Respiratory Rate Blood Pressure Blood Pressure [Left] O2 Sat by Pulse 94 94 95 Oximetry 12/09/18 12/09/18 12/09/18 10:54 10:58 11:11 Temperature Pulse Rate 100 H 102 H 106 H Respiratory Rate Blood Pressure Blood Pressure [Left] O2 Sat by Pulse 94 94 97 Oximetry 12/09/18 12/09/18 12/09/18 11:16 11:17 11:21 Temperature Pulse Rate 107 H 94 H 100 H Respiratory Rate Blood Pressure Blood Pressure [Left] O2 Sat by Pulse 96 94 95 Oximetry 12/09/18 12/09/18 12/09/18 11:23 11:26 11:30 Temperature Pulse Rate 103 H 99 H 104 H Respiratory Rate Blood Pressure Blood Pressure [Left] O2 Sat by Pulse 94 95 93 Oximetry 12/09/18 12/09/18 12/09/18 11:31 11:36 11:41 Temperature Pulse Rate 97 H 111 H 101 H Respiratory Rate Blood Pressure Blood Pressure [Left] O2 Sat by Pulse 96 96 96 Oximetry 12/09/18 12/09/18 12/09/18 11:43 11:46 11:51 Temperature Pulse Rate 91 H 102 H 94 H Respiratory Rate Blood Pressure Blood Pressure [Left] O2 Sat by Pulse 94 96 97 Oximetry 12/09/18 12/09/18 12/09/18 11:55 11:56 12:01 Temperature Pulse Rate 98 H 101 H 95 H Respiratory Rate Blood Pressure Blood Pressure [Left] O2 Sat by Pulse 94 96 97 Oximetry 12/09/18 12/09/18 12/09/18 12:04 12:06 12:10 Temperature Pulse Rate 101 H 98 H 100 H Respiratory Rate Blood Pressure 120/69 Blood Pressure [Left] O2 Sat by Pulse 93 97 Oximetry 12/09/18 12/09/18 12/09/18 12:11 12:15 12:16 Temperature Pulse Rate 102 H 105 H 86 Respiratory Rate Blood Pressure Blood Pressure [Left] O2 Sat by Pulse 96 94 95 Oximetry 12/09/18 12/09/18 12/09/18 12:21 12:26 12:31 Temperature Pulse Rate 90 92 H 95 H Respiratory Rate Blood Pressure Blood Pressure [Left] O2 Sat by Pulse 96 94 94 Oximetry 12/09/18 12/09/18 12/09/18 12:36 12:41 12:42 Temperature Pulse Rate 103 H 92 H 99 H Respiratory Rate Blood Pressure Blood Pressure [Left] O2 Sat by Pulse 96 96 94 Oximetry 12/09/18 12/09/18 12/09/18 12:46 12:51 12:52 Temperature Pulse Rate 87 89 90 Respiratory Rate Blood Pressure Blood Pressure [Left] O2 Sat by Pulse 97 95 94 Oximetry 12/09/18 12/09/18 12/09/18 12:56 12:58 13:01 Temperature Pulse Rate 94 H 94 H 94 H Respiratory Rate Blood Pressure Blood Pressure [Left] O2 Sat by Pulse 94 94 96 Oximetry 12/09/18 12/09/18 12/09/18 13:06 13:11 13:16 Temperature Pulse Rate 98 H 102 H 85 Respiratory Rate Blood Pressure 132/93 Blood Pressure [Left] O2 Sat by Pulse 95 93 96 Oximetry 12/09/18 12/09/18 12/09/18 13:21 13:31 13:33 Temperature Pulse Rate 99 H 86 87 Respiratory Rate Blood Pressure Blood Pressure [Left] O2 Sat by Pulse 95 96 94 Oximetry 12/09/18 12/09/18 12/09/18 13:36 13:41 13:46 Temperature Pulse Rate 90 88 87 Respiratory Rate Blood Pressure Blood Pressure [Left] O2 Sat by Pulse 95 96 95 Oximetry 12/09/18 12/09/18 12/09/18 13:51 13:55 13:56 Temperature Pulse Rate 89 97 H 94 H Respiratory Rate Blood Pressure Blood Pressure [Left] O2 Sat by Pulse 96 94 95 Oximetry 12/09/18 12/09/18 12/09/18 14:01 14:05 14:06 Temperature 98.4 F Pulse Rate 98 H 92 H 87 Respiratory Rate Blood Pressure Blood Pressure [Left] O2 Sat by Pulse 96 97 Oximetry 12/09/18 12/09/18 12/09/18 14:11 14:16 14:20 Temperature Pulse Rate 92 H 86 96 H Respiratory Rate Blood Pressure 129/75 Blood Pressure [Left] O2 Sat by Pulse 92 97 94 Oximetry 12/09/18 12/09/18 12/09/18 14:21 14:26 14:30 Temperature Pulse Rate 85 96 H 85 Respiratory Rate Blood Pressure Blood Pressure [Left] O2 Sat by Pulse 94 95 94 Oximetry 12/09/18 12/09/18 12/09/18 14:31 14:36 14:37 Temperature Pulse Rate 106 H 89 89 Respiratory Rate Blood Pressure Blood Pressure [Left] O2 Sat by Pulse 98 95 94 Oximetry 12/09/18 12/09/18 12/09/18 14:41 14:42 14:46 Temperature Pulse Rate 89 83 86 Respiratory Rate Blood Pressure Blood Pressure [Left] O2 Sat by Pulse 96 94 94 Oximetry 12/09/18 12/09/18 12/09/18 14:48 14:51 14:53 Temperature Pulse Rate 81 91 H 85 Respiratory Rate Blood Pressure Blood Pressure [Left] O2 Sat by Pulse 94 94 94 Oximetry 12/09/18 12/09/18 12/09/18 14:56 14:58 15:01 Temperature Pulse Rate 85 86 87 Respiratory Rate Blood Pressure Blood Pressure [Left] O2 Sat by Pulse 95 94 95 Oximetry 12/09/18 12/09/18 12/09/18 15:04 15:06 15:10 Temperature Pulse Rate 92 H 83 99 H Respiratory Rate Blood Pressure 130/79 Blood Pressure [Left] O2 Sat by Pulse 91 94 92 Oximetry 12/09/18 12/09/18 12/09/18 15:11 15:16 15:21 Temperature Pulse Rate 91 H 93 H 79 Respiratory Rate Blood Pressure Blood Pressure [Left] O2 Sat by Pulse 95 94 93 Oximetry 12/09/18 12/09/18 12/09/18 15:26 15:31 15:36 Temperature Pulse Rate 103 H 84 85 Respiratory Rate Blood Pressure Blood Pressure [Left] O2 Sat by Pulse 93 94 94 Oximetry 12/09/18 12/09/18 12/09/18 15:39 15:41 15:53 Temperature Pulse Rate 95 H 96 H 106 H Respiratory Rate Blood Pressure Blood Pressure [Left] O2 Sat by Pulse 94 95 97 Oximetry 12/09/18 12/09/18 12/09/18 15:58 16:03 16:08 Temperature Pulse Rate 85 87 85 Respiratory Rate Blood Pressure Blood Pressure [Left] O2 Sat by Pulse 96 96 96 Oximetry 12/09/18 12/09/18 12/09/18 16:10 16:11 16:13 Temperature Pulse Rate 98 H 80 92 H Respiratory Rate Blood Pressure 142/73 126/59 Blood Pressure [Left] O2 Sat by Pulse 92 97 Oximetry 12/09/18 12/09/18 12/09/18 16:18 16:23 16:28 Temperature Pulse Rate 83 86 101 H Respiratory Rate Blood Pressure Blood Pressure [Left] O2 Sat by Pulse 97 95 96 Oximetry 12/09/18 12/09/18 12/09/18 16:33 16:37 16:38 Temperature Pulse Rate 91 H 97 H 105 H Respiratory Rate Blood Pressure Blood Pressure [Left] O2 Sat by Pulse 97 94 97 Oximetry 12/09/18 12/09/18 12/09/18 16:43 16:48 16:53 Temperature Pulse Rate 92 H 98 H 104 H Respiratory Rate Blood Pressure Blood Pressure [Left] O2 Sat by Pulse 98 97 96 Oximetry 12/09/18 12/09/18 12/09/18 16:58 17:03 17:08 Temperature Pulse Rate 104 H 94 H 100 H Respiratory Rate Blood Pressure Blood Pressure [Left] O2 Sat by Pulse 97 97 97 Oximetry 12/09/18 12/09/18 12/09/18 17:10 17:13 17:18 Temperature Pulse Rate 90 95 H 101 H Respiratory Rate Blood Pressure 139/87 Blood Pressure [Left] O2 Sat by Pulse 97 97 Oximetry 12/09/18 12/09/18 12/09/18 17:23 17:28 17:33 Temperature Pulse Rate 102 H 110 H 102 H Respiratory Rate Blood Pressure Blood Pressure [Left] O2 Sat by Pulse 98 97 98 Oximetry 12/09/18 12/09/18 12/09/18 17:38 17:47 17:52 Temperature Pulse Rate 107 H 103 H 107 H Respiratory Rate Blood Pressure Blood Pressure [Left] O2 Sat by Pulse 97 97 98 Oximetry 12/09/18 12/09/18 12/09/18 17:57 17:59 18:00 Temperature Pulse Rate 107 H 107 H 102 H Respiratory Rate Blood Pressure 156/74 139/68 Blood Pressure [Left] O2 Sat by Pulse 97 Oximetry 12/09/18 12/09/18 12/09/18 18:02 18:04 18:06 Temperature Pulse Rate 105 H 122 H 116 H Respiratory Rate Blood Pressure 141/74 143/82 130/76 Blood Pressure [Left] O2 Sat by Pulse 95 92 Oximetry 12/09/18 12/09/18 12/09/18 18:07 18:08 18:10 Temperature Pulse Rate 109 H 114 H 105 H Respiratory Rate Blood Pressure 135/73 128/74 Blood Pressure [Left] O2 Sat by Pulse 95 Oximetry 12/09/18 12/09/18 12/09/18 18:12 18:14 18:16 Temperature Pulse Rate 117 H 121 H 114 H Respiratory Rate Blood Pressure 118/67 119/69 124/71 Blood Pressure [Left] O2 Sat by Pulse 95 94 Oximetry 12/09/18 12/09/18 12/09/18 18:17 18:18 18:20 Temperature 98.5 F Pulse Rate 102 H 125 H 92 H Respiratory 20 Rate Blood Pressure 115/64 119/68 Blood Pressure [Left] O2 Sat by Pulse 95 Oximetry 12/09/18 12/09/18 12/09/18 18:21 18:22 18:24 Temperature Pulse Rate 101 H 103 H 120 H Respiratory Rate Blood Pressure 114/68 120/76 Blood Pressure [Left] O2 Sat by Pulse 94 94 Oximetry 12/09/18 12/09/18 12/09/18 18:26 18:27 18:28 Temperature Pulse Rate 125 H 118 H 117 H Respiratory Rate Blood Pressure 117/64 110/63 Blood Pressure [Left] O2 Sat by Pulse 94 Oximetry 12/09/18 12/09/18 12/09/18 18:32 18:37 18:42 Temperature Pulse Rate 126 H 131 H 139 H Respiratory Rate Blood Pressure Blood Pressure [Left] O2 Sat by Pulse 95 96 96 Oximetry 12/09/18 12/09/18 12/09/18 18:47 18:52 18:57 Temperature Pulse Rate 144 H 127 H 135 H Respiratory Rate Blood Pressure 91/54 Blood Pressure [Left] O2 Sat by Pulse 95 96 96 Oximetry 12/09/18 12/09/18 12/09/18 18:58 19:02 19:03 Temperature Pulse Rate 105 H 106 H 128 H Respiratory Rate Blood Pressure 92/51 Blood Pressure [Left] O2 Sat by Pulse 94 95 93 Oximetry 12/09/18 12/09/18 12/09/18 19:07 19:09 19:12 Temperature Pulse Rate 124 H 120 H 103 H Respiratory Rate Blood Pressure Blood Pressure [Left] O2 Sat by Pulse 94 94 94 Oximetry 12/09/18 12/09/18 12/09/18 19:14 19:17 19:18 Temperature Pulse Rate 121 H 101 H 114 H Respiratory Rate Blood Pressure 109/61 105/59 Blood Pressure [Left] O2 Sat by Pulse 94 95 Oximetry 12/09/18 12/09/18 12/09/18 19:22 19:27 19:32 Temperature Pulse Rate 116 H 125 H 111 H Respiratory Rate Blood Pressure Blood Pressure [Left] O2 Sat by Pulse 92 93 94 Oximetry 12/09/18 12/09/18 12/09/18 19:33 19:37 19:42 Temperature Pulse Rate 110 H 119 H 112 H Respiratory Rate Blood Pressure 102/60 Blood Pressure [Left] O2 Sat by Pulse 89 96 92 Oximetry - Exam Breasts: normal Cardiovascular: Regular rate Lungs: Clear to auscultation, Normal air movement Abdomen: Present: normal appearance, soft Vulva: both: normal Uterus: Present: normal FHR: auscultation normal, category 1 Uterine Contraction Monitor Mode: Internal Cervical Dilatation: 7.5 Cervical Effacement Percentage: 100 station: 0 Uterine Contraction Frequency (min): 2-3 Uterine Contraction Duration: 60 Uterine Contraction Pattern: Regular Uterine Tone Measurement Phase: Contraction Uterine Contraction Intensity: Strong/Firm Extremities: normal Deep Tendon Reflex Grade: Normal +2 - Labs Labs: Abnormal Labs 12/09/18 17:14 POC Glucose 61 L Laboratory Results - last 24 hr 12/09/18 12/09/18 12/09/18 10:10 10:10 10:10 WBC 8.7 RBC 3.88 Hgb 11.7 Hct 34.5 MCV 89 MCH 30 MCHC 34 RDW 14.1 Plt Count 219 POC Glucose RPR Nonreactive Blood Type O POSITIVE Antibody Screen Negative 12/09/18 12/09/18 11:49 17:14 WBC RBC Hgb Hct MCV MCH MCHC RDW Plt Count POC Glucose 94 61 L RPR Blood Type Antibody Screen
--- NOTE | 2018-12-09 21:12 | Procedure Note ---
OB Delivery Note - Delivery Date of Delivery: 12/09/18 ( Male) Lead Sharepoint Developer: MARCO ANTONIO JULIAN Estimated blood loss: 300cc - Vaginal Delivery presentation: vertex Delivery position: OA (TAL) Intrapartum events: none Delivery induction: oxytocin Delivery augmentation: rupture of membranes, pitocin Delivery monitor: internal FHT, internal uterine Route of delivery: Delivery placenta: spontaneous Delivery cord: 3 umbilical vessels Episiotomy: none Delivery laceration: none Anesthesia: epidural Delivery comments: Male infant del over intact perienum, TAL with left hand presenting with chin. no Shoulder dystocia. placed skin to skin, 3 vessel cord clamped and cut after cessation of pulsation. Cord blood collected, placenta del intact and complete. Pit to IVF. no lacerations to repair. Fundus firm. Lochia small. EBL 300, apgars 8/9, wt 9#0oz. Mother and infant LDR stable. - Infant A at 1 minute: 8 at 5 minutes: 9 Infant Gender: Male (9#0oz, Felipe)
[2018-12-09] MEDS ORDERED: MILK OF MAGNESIA PO PRN (23:54)
[2018-12-09] MEDS ORDERED: DULCOLAX PR PRN (23:54)
[2018-12-09] MEDS ORDERED: PHENERGAN PO PRN (23:54)
[2018-12-09] MEDS ORDERED: TUCKS PAD TP PRN (23:54)
[2018-12-09] MEDS ORDERED: ZOFRAN IV PRN (23:54)
[2018-12-09] MEDS ORDERED: DERMOPLAST TP PRN (23:54)
[2018-12-09] MEDS ORDERED: LANSINOH TP PRN (23:54)
[2018-12-09] MEDS ORDERED: TYLENOL PO PRN (23:54)
[2018-12-09] MEDS ORDERED: SODIUM CHLORIDE FLUSH SYRINGE 10 ML IV NR (23:54)
[2018-12-09] MEDS ORDERED: BENADRYL PO PRN (23:54)
[2018-12-10] MEDS: IBUPROFEN PO SCH ×4 (00:17→18:16)
[2018-12-10] MEDS ORDERED: NORCO 5/325 PO ONE (03:18)
[2018-12-10] MEDS ORDERED: BOOSTRIX IM ONE (06:00)
--- NOTE | 2018-12-10 08:57 | Progress Note ---
Assessment and Plan POD1 Patient reports feeling well, no complains. Fundus firm, ML,U/1. Vaginal bleeding is minimal. Patient reports pain is tolerable. Encouraged to try Mortin as needed and to ambulate. Patient is bottle feeding, no breast complaints. Subjective - Subjective Date of service: 12/10/18 Principal diagnosis: PPD 2 Patient reports: appetite normal, voiding normally, pain well controlled, ambulating normally : doing well Objective - Vital Signs Latest vital signs: Vital Signs Temp Pulse Resp BP BP Pulse Ox 12/10/18 05:26 20 12/10/18 00:17 20 12/10/18 00:01 99.2 F 99 H 20 118/64 86 12/09/18 23:13 101 H 147/84 12/09/18 23:07 100 H 136/70 12/09/18 22:53 102 H 115/58 12/09/18 22:43 112 H 121/63 12/09/18 22:23 115 H 114/59 12/09/18 22:13 111 H 118/55 12/09/18 21:53 115 H 128/66 12/09/18 21:43 129 H 141/60 12/09/18 21:33 133 H 166/85 12/09/18 21:23 136 H 121/56 12/09/18 21:17 127 H 129/58 12/09/18 21:13 133 H 134/64 12/09/18 21:03 141 H 132/62 12/09/18 21:02 139 H 136/59 12/09/18 20:47 155 H 140/76 12/09/18 20:44 147 H 96 12/09/18 20:39 94 12/09/18 20:38 40 L 12/09/18 20:32 114 H 130/69 12/09/18 20:28 90 12/09/18 20:23 125 H 95 12/09/18 20:17 104 H 122/58 12/09/18 20:15 101 H 97 12/09/18 20:09 93 H 0 L 12/09/18 20:02 103 H 119/71 96 12/09/18 19:57 116 H 98 12/09/18 19:52 102 H 97 12/09/18 19:47 104 H 108/68 97 12/09/18 19:42 112 H 92 12/09/18 19:37 119 H 96 12/09/18 19:33 110 H 102/60 89 12/09/18 19:32 111 H 94 12/09/18 19:27 125 H 93 12/09/18 19:22 116 H 92 12/09/18 19:18 114 H 105/59 12/09/18 19:17 101 H 109/61 95 12/09/18 19:14 121 H 94 12/09/18 19:12 103 H 94 12/09/18 19:09 120 H 94 12/09/18 19:07 124 H 94 12/09/18 19:03 128 H 92/51 93 12/09/18 19:02 106 H 95 12/09/18 18:58 105 H 94 12/09/18 18:57 135 H 96 12/09/18 18:52 127 H 96 12/09/18 18:47 144 H 91/54 95 12/09/18 18:42 139 H 96 12/09/18 18:37 131 H 96 12/09/18 18:32 126 H 95 12/09/18 18:28 117 H 110/63 12/09/18 18:27 118 H 94 12/09/18 18:26 125 H 117/64 12/09/18 18:24 120 H 120/76 12/09/18 18:22 103 H 114/68 94 12/09/18 18:21 101 H 94 12/09/18 18:20 98.5 F 92 H 20 119/68 12/09/18 18:18 125 H 115/64 12/09/18 18:17 102 H 95 12/09/18 18:16 114 H 124/71 94 12/09/18 18:14 121 H 119/69 12/09/18 18:12 117 H 118/67 95 12/09/18 18:10 105 H 128/74 12/09/18 18:08 114 H 135/73 12/09/18 18:07 109 H 95 12/09/18 18:06 116 H 130/76 12/09/18 18:04 122 H 143/82 92 12/09/18 18:02 105 H 141/74 95 12/09/18 18:00 102 H 139/68 12/09/18 17:59 107 H 156/74 12/09/18 17:57 107 H 97 12/09/18 17:52 107 H 98 12/09/18 17:47 103 H 97 12/09/18 17:38 107 H 97 12/09/18 17:33 102 H 98 12/09/18 17:28 110 H 97 12/09/18 17:23 102 H 98 12/09/18 17:18 101 H 97 12/09/18 17:13 95 H 97 12/09/18 17:10 90 139/87 12/09/18 17:08 100 H 97 12/09/18 17:03 94 H 97 12/09/18 16:58 104 H 97 12/09/18 16:53 104 H 96 12/09/18 16:48 98 H 97 12/09/18 16:43 92 H 98 12/09/18 16:38 105 H 97 12/09/18 16:37 97 H 94 12/09/18 16:33 91 H 97 12/09/18 16:28 101 H 96 12/09/18 16:23 86 95 12/09/18 16:18 83 97 12/09/18 16:13 92 H 97 12/09/18 16:11 80 126/59 12/09/18 16:10 98 H 142/73 92 12/09/18 16:08 85 96 12/09/18 16:03 87 96 12/09/18 15:58 85 96 12/09/18 15:53 106 H 97 12/09/18 15:41 96 H 95 12/09/18 15:39 95 H 94 12/09/18 15:36 85 94 12/09/18 15:31 84 94 12/09/18 15:26 103 H 93 12/09/18 15:21 79 93 12/09/18 15:16 93 H 94 12/09/18 15:11 91 H 95 12/09/18 15:10 99 H 130/79 92 12/09/18 15:06 83 94 12/09/18 15:04 92 H 91 12/09/18 15:01 87 95 12/09/18 14:58 86 94 12/09/18 14:56 85 95 12/09/18 14:53 85 94 12/09/18 14:51 91 H 94 12/09/18 14:48 81 94 12/09/18 14:46 86 94 12/09/18 14:42 83 94 12/09/18 14:41 89 96 12/09/18 14:37 89 94 12/09/18 14:36 89 95 12/09/18 14:31 106 H 98 12/09/18 14:30 85 94 12/09/18 14:26 96 H 95 12/09/18 14:21 85 94 12/09/18 14:20 96 H 94 12/09/18 14:16 86 97 12/09/18 14:11 92 H 129/75 92 12/09/18 14:06 87 97 12/09/18 14:05 98.4 F 92 H 12/09/18 14:01 98 H 96 12/09/18 13:56 94 H 95 12/09/18 13:55 97 H 94 12/09/18 13:51 89 96 12/09/18 13:46 87 95 12/09/18 13:41 88 96 12/09/18 13:36 90 95 12/09/18 13:33 87 94 12/09/18 13:31 86 96 12/09/18 13:21 99 H 95 12/09/18 13:16 85 96 12/09/18 13:11 102 H 132/93 93 12/09/18 13:06 98 H 95 12/09/18 13:01 94 H 96 12/09/18 12:58 94 H 94 12/09/18 12:56 94 H 94 12/09/18 12:52 90 94 12/09/18 12:51 89 95 12/09/18 12:46 87 97 12/09/18 12:42 99 H 94 12/09/18 12:41 92 H 96 12/09/18 12:36 103 H 96 12/09/18 12:31 95 H 94 12/09/18 12:26 92 H 94 12/09/18 12:21 90 96 12/09/18 12:16 86 95 12/09/18 12:15 105 H 94 12/09/18 12:11 102 H 96 12/09/18 12:10 100 H 120/69 12/09/18 12:06 98 H 97 12/09/18 12:04 101 H 93 12/09/18 12:01 95 H 97 12/09/18 11:56 101 H 96 12/09/18 11:55 98 H 94 12/09/18 11:51 94 H 97 12/09/18 11:46 102 H 96 12/09/18 11:43 91 H 94 12/09/18 11:41 101 H 96 12/09/18 11:36 111 H 96 12/09/18 11:31 97 H 96 12/09/18 11:30 104 H 93 12/09/18 11:26 99 H 95 12/09/18 11:23 103 H 94 12/09/18 11:21 100 H 95 12/09/18 11:17 94 H 94 12/09/18 11:16 107 H 96 12/09/18 11:11 106 H 97 12/09/18 10:58 102 H 94 12/09/18 10:54 100 H 94 12/09/18 10:53 101 H 95 12/09/18 10:48 97 H 94 12/09/18 10:43 103 H 94 12/09/18 10:38 97 H 95 12/09/18 10:37 94 H 94 12/09/18 10:33 105 H 95 12/09/18 10:31 106 H 93 12/09/18 10:28 102 H 96 12/09/18 10:25 102 H 94 12/09/18 10:23 106 H 95 12/09/18 10:20 105 H 93 12/09/18 10:18 104 H 96 12/09/18 10:13 119 H 96 12/09/18 10:12 96 H 125/76 91 12/09/18 09:59 112 H 94 12/09/18 09:54 105 H 94 12/09/18 09:49 111 H 95 12/09/18 09:48 104 H 94 12/09/18 09:44 104 H 96 12/09/18 09:42 104 H 94 12/09/18 09:39 114 H 94 12/09/18 09:37 104 H 94 12/09/18 09:34 109 H 95 12/09/18 09:29 114 H 95 12/09/18 09:28 116 H 93 12/09/18 09:24 112 H 94 12/09/18 09:22 106 H 94 12/09/18 09:19 112 H 93 12/09/18 09:14 104 H 94 12/09/18 09:09 98.7 F 105 H 18 107/63 107/63 97 Intake and Output 12/09/18 12/10/18 12/10/18 23:59 07:59 15:59 Intake Total 825.000 Output Total 700 Balance 825.000 -700 Intake: IV 825.000 Lactated Ringers 1,000 ml 825.000 @ 125 mls/hr IV DIRECT ERIKA Rx#:[id number] Output: Urine 700 Void 700 Other: Total, Output Amount 700 # Voids Void 1 Estimated Blood Loss 300 - Exam Cardiovascular: Present: Regular rate, Normal S1, Normal S2 Lungs: Present: Clear to auscultation Abdomen: Present: normal appearance, soft Vulva: both: normal Uterus: Present: normal, firm Extremities: Present: normal Incision: Present: normal, dry, intact - Labs Labs: Abnormal lab results 12/09/18 Range/Units 17:14 POC Glucose 61 L (70-105)
[2018-12-10 09:33] LABS: Hematocrit 34.1 % (30.3-42.9); Hemoglobin 11.4 gm/dl (10.1-14.3)
--- NOTE | 2018-12-10 09:38 | Post Anesthesia Evaluation ---
- Post Anesthesia Evaluation Patient Participated: Yes Airway Patent: Yes Stable Respiratory Function: Yes Nausea/Vomiting: No Temp > 96.8F: Yes Pain Manageable: Yes Adequeate Hydration: Yes Anesthesia Complications: No Block Receding Appropriately: Yes Patient on Ventilator: No
[2018-12-10] MEDS ORDERED: PRENATAL VITAMIN PO SCH (10:00)
[2018-12-10] MEDS ORDERED: AFLURIA QUAD 2018-2019 SYRINGE IM ONE (12:00)
[2018-12-11] MEDS: IBUPROFEN PO SCH ×3 (06:00→14:11)
--- NOTE | 2018-12-11 08:50 | Discharge Summary ---
Providers - Providers Date of Admission: 12/09/18 08:33 Date of discharge: 12/11/18 Attending physician: KANWAL NAZARIO Primary care physician: KANWAL NAZARIO Hospitalization Reason for admission: IOL Condition: Good Pertinent studies: post delivery h&h 11.4/34.1 Procedures: Hospital course: uncomplicated and delivery Disposition: DC-01 TO HOME OR SELFCARE Core Measure Documentation - Palliative Care Palliative Care/ Comfort Measures: Not Applicable - Core Measures Any of the following diagnoses?: none Exam - Constitutional Vitals: Temp Pulse Resp BP Pulse Ox 97.6 F 73 16 106/59 98 12/11/18 01:35 12/11/18 01:35 12/11/18 01:35 12/11/18 01:35 12/11/18 01:35 General appearance: Present: no acute distress, well-nourished - EENT Eyes: Present: PERRL ENT: hearing intact, clear oral mucosa - Neck Neck: Present: supple, normal ROM - Respiratory Respiratory effort: normal Respiratory: bilateral: CTA - Cardiovascular Heart Sounds: Present: S1 & S2. Absent: rub, click - Extremities Extremities: pulses symmetrical, No edema Peripheral Pulses: within normal limits - Abdominal General gastrointestinal: Present: soft, non-tender, non-distended, normal bowel sounds Female genitourinary: Present: normal - Integumentary Integumentary: Present: clear, warm, dry - Musculoskeletal Musculoskeletal: gait normal, strength equal bilaterally - Psychiatric Psychiatric: appropriate mood/affect, intact judgment & insight - Neurologic Neurologic: CNII-XII intact, moves all extremities - Additional findings Additional findings: Fundus firm, ML, U/2. Vaginal bleeding is scant. Patient reports cramping pain is well controlled with Motrin. Patient reports bottle feeding only. Denies any breast complaints. VSSAF. Desires discharge today. Plan Activity: no restrictions Diet: regular Follow up with: KANWAL NAZARIO MD [Primary Care Provider] - 01/10/19 (Congratulations! Please call [phone] to schedule your son's circumcision in 1 week. Bring EMLA cream prescription with you to his appointment and await further instructions for use. Please schedule your appointment in 4 weeks. Call with any questions or concerns. )
[2018-12-11 09:58] VITALS: BP 131/69
== END 2018-12-11 16:53 | disposition home or self-care (01) | DRG 775 ==
LOC: UNDOADMIN 08:33 → LD 08:33 → OB 23:59
PROVIDERS: ADMIT Obstetrics & Gynecology; ATTEND Obstetrics & Gynecology
PROC: 10E0XZZ Delivery of Products of Conception, External Approach (ICD-10-PCS; principal; 2018-12-09)
PROC: 10H07YZ Insertion of Other Device into Products of Conception, Via Natural or Artificial Opening (ICD-10-PCS; 2018-12-09)
PROC: 10907ZC Drainage of Amniotic Fluid, Therapeutic from Products of Conception, Via Natural or Artificial Opening (ICD-10-PCS; 2018-12-09)
PROC: 3E033VJ Introduction of Other Hormone into Peripheral Vein, Percutaneous Approach (ICD-10-PCS; 2018-12-09)
PROC: 3E0R3BZ Introduction of Anesthetic Agent into Spinal Canal, Percutaneous Approach (ICD-10-PCS; 2018-12-09)
PROC: 00HU33Z Insertion of Infusion Device into Spinal Canal, Percutaneous Approach (ICD-10-PCS; 2018-12-09)
PROC: 3E0234Z Introduction of Serum, Toxoid and Vaccine into Muscle, Percutaneous Approach (ICD-10-PCS; 2018-12-10)
DX: O99.824 Streptococcus B carrier state complicating childbirth (principal); O24.424 Gestational diabetes mellitus in childbirth, insulin controlled; Z3A.38 38 weeks gestation of pregnancy; Z37.0 Single live birth; Z23 Encounter for immunization; Z83.3 Family history of diabetes mellitus; Z82.49 Family history of ischemic heart disease and other diseases of the circulatory system
CPT/HCPCS: 36415; 82947; 82962; 85014; 85018; 85027; 86592; 86762; 86850; 86900; 86901; 90686; G0378; J0290; J2590; J7120

== ENCOUNTER 2019-01-25 05:47 | Day surgery (SDC) | payer MEDICAID ==
--- NOTE | 2019-01-24 11:45 | History and Physical Report ---
History of Present Illness Date of examination: 01/20/19 Date of admission: 01/25/2019 Chief complaint: here for tubal ligation History of present illness: Visit Type: Pre-Op CC: no complaints. History of Present Illness: pt presents for pre-op for BTL;no c/o ...................................................................Jo Rojas January 20, 2019 10:58 AM All risk/benefits/alternatives were d/w pt and questions were addressed and answered. I d/w felshi clip placement vs salpingectomy. She desires salpingectomy at this time.Consents were signed and placed on the chart. Vital Signs: Patient Profile: 38 Years Old Female Height: 61 inches Weight: 171 pounds BMI: 32.31 BP sittin / 78 (left arm) Menstrual History: LMP - Character: no menses since del Current Method of Contraception: None Past History : 8 Term Births: 5 Premature Births: 0 Living Children: 5 Para: 4 Mult. Births: 0 Prev : 0 Aborta: 3 Elect. Ab: 2 Spont. Ab: 1 # 1 Delivery date: 1999 Weeks Gestation: term Delivery type: Delivery location: [place] Inf[place] Sex: Male weight: 8#11 # 2 Delivery date: 2001 Weeks Gestation: term Delivery type: Delivery location: [place] Sex: Female weight: 6#11 # 3 Delivery date: 2011 Weeks Gestation: term Delivery type: Delivery location: [place] Inf[place] Sex: Female weight: 7#11 # 4 Delivery date: 2013 Weeks Gestation: term Delivery type: Delivery location: [place] Sex: Female weight: 7#11 # 5 Delivery date: 12/09/2018 Weeks Gestation: 38+1 Delivery type: Vaginal Hours of labor: 4 Anesthesia type: epidural Delivery location: [facility] Infant Sex: female weight: 8.56 Name: Valerio 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 of genital herpes: no Partner hx. 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 History: denies: abnormal PAP smear Family/Genetic History: none Social history: no significant social history, - Obstetrical History : 8 Para: 5 Number of Living Children: 2 Medications and Allergies Allergies Allergy/AdvReac Type Severity Reaction Status Date / Time No Known Allergies Allergy Unverified 01/19/19 17:38 Home Medications Medication Instructions Recorded Confirmed Last Taken Type Multivitamin Tablet 1 tab PO DAILY 12/09/18 01/19/19 12/08/18 10:00 History 1 Review of Systems All systems: negative - Physical Exam Cardiovascular: Normal S1 Lungs: Positive: Clear to auscultation, Normal air movement Abdomen: Positive: normal appearance, soft. Negative: distention, tenderness, guarding Genitourinary (Female): Positive: other (deferred until EUA) Extremities: Positive: normal. Negative: tenderness, edema Deep Tendon Reflex Grade: Normal +2 Results All other labs normal. Assessment and Plan - Patient Problems (1) Encounter for sterilization Status: Acute Plan to address problem: All risk/benefits/alternatives were d/w pt and questions were addressed and answered. I d/w felshi clip placement vs salpingectomy. She desires salpingectomy at this time.Consents were signed and placed on the chart. -to OR for above stated procedure
[~2019-01-25 05:47] MED LIST: ANCEF/STERILE WATER 2 GM/20 ML 2 GM/20 ML SYRINGE IV NR
[2019-01-25] MEDS ORDERED: VERSED IV NR (06:00)
[2019-01-25] MEDS ORDERED: NEURONTIN PO NR (06:00)
[2019-01-25] MEDS ORDERED: LACTATED RINGERS 1,000 ML IV SCH (06:00)
--- NOTE | 2019-01-25 07:11 | Anesthesia Consultation ---
Anesthesia Consult and Med Hx Date of service: 01/25/19 - Airway Anesthetic Teeth Evaluation: Good ROM Head & Neck: Adequate Mental/Hyoid Distance: Adequate Mallampati Class: Class II Intubation Access Assessment: Probably Good - Pulmonary Exam CTA: Yes - Pre-Operative Health Status ASA Pre-Surgery Classification: ASA2 Proposed Anesthetic Plan: General - Pulmonary Hx Smoking: Yes (Former) Hx Asthma: No COPD: No Hx Pneumonia: No - Cardiovascular System Hx Hypertension: No - Central Nervous System Hx Seizures: No Hx Psychiatric Problems: No - Endocrine Hx Renal Disease: No Hx End Stage Renal Disease: No Hx Insulin Dependent Diabetes: Yes (during , BG 118) Hx Hypothyroidism: No Hx Hyperthyroidism: No - Hematic Hx Anemia: No Hx Sickle Cell Disease: No - Other Systems Hx Alcohol Use: Yes (Occas) Hx Cancer: No
--- NOTE | 2019-01-25 07:12 | Anesthesia Day of Surgery ---
Anesthesia Day of Surgery - Day of Surgery Patient Examined: Yes Patient H&P Reviewed: Yes Patient is NPO: Yes
[2019-01-25] MEDS ORDERED: SUBLIMAZE ONE (07:14)
[2019-01-25] MEDS ORDERED: ZEMURON IV ONE (07:15)
[2019-01-25] MEDS ORDERED: DIPRIVAN 10 MG/ML IV ONE (07:15)
[2019-01-25] MEDS ORDERED: MARCAINE 0.25% INFILTRATI ONE (07:16)
[2019-01-25] MEDS ORDERED: XYLOCAINE CARDIAC IV ONE (07:17)
[2019-01-25] MEDS ORDERED: XYLOCAINE 1%/ EPI 1:100,000 INFILTRATI ONE (07:17)
[2019-01-25] MEDS ORDERED: BLOXIVERZ ONE (07:18)
[2019-01-25] MEDS ORDERED: MARCAINE 0.5% INFILTRATI ONE ×2 (07:20→07:30)
[2019-01-25] MEDS ORDERED: NACL 0.9% IR ONE (07:30)
[2019-01-25] MEDS ORDERED: PEPCID IV NR (08:00)
[2019-01-25] MEDS ORDERED: ANCEF/STERILE WATER 2 GM/20 ML 2 GM/20 ML SYRINGE IV NR (08:00)
--- NOTE | 2019-01-25 08:43 | Operative Report ---
Operative Report Operative Report: Date of procedure: 01/25/2019 Pre-operative diagnosis: Desires permanent sterilization Post-operative diagnosis: Same Procedure name(s): Laparoscopic salpingectomy bilateral Surgeon: Dr. Orellana Infertility Nurse: MINNIE Anesthesia: Gen. endotracheal anesthesia EBL: Minimal Urine output: 50 mL of clear urine out prior to the onset of procedure Fluids: 600 mL Findings: Grossly normal fallopian tubes and ovaries bilaterally normal uterus and normal cervix. Indications: Patient presents for permanent sterilization. All risks benefits and alternatives were discussed with patient. Patient desired bilateral salpingectomy. Consents were signed and placed on the chart. Procedure: Patient was taken to the operating room and which she was placed under general endotracheal anesthesia. Patient was then prepped and draped in sterile fashion and placed in dorsal lithotomy position in Jose stirrups. Attention was then turned to the vagina in which a Humi uterine manipulator was placed. Patient underwent straight catheterization. Attention was then turned to the umbilicus and which an infraumbilical incision was made with the scalpel 5mm trocar was placed using direct visualization with the camera. Abdomen was then insufflated with gas. Under direct visualization a second 8 mm and anoth er 5 mm trocar were placed. The left fallopian tube was grasped with the grasper cauterized with the LigaSure device and ligated and completely removed and passed off for pathology. Excellent hemostasis was noted. This was repeated on the right side. After tubal ligation was completed all instruments were removed from the abdomen under direct visualization. All gas was also released from the abdomen. The subcuticular fat was reapproximated with 2-0 Vicryl. The skin was approximated with 4-0 Monocryl in a subcuticular stitch. All incisions were injected with half percent Marcaine without epi. The patient tolerated procedure well. Sponge, lap, and needle counts were all correct x3 the patient was taken to the recovery room awake and in stable condition.
--- NOTE | 2019-01-25 08:44 | Short Stay Summary ---
Short Stay Documentation Date of service: 01/25/19 - History H&P: dictated Social history: no significant social history, - Allergies and Medications Current Medications: Allergies No Known Allergies Allergy (Unverified 01/19/19 17:38) Home Medications Medication Instructions Recorded Confirmed Last Taken Type Multivitamin Tablet 1 tab PO DAILY 12/09/18 01/25/19 01/24/19 09:00 History Ibuprofen [Motrin 800 MG tab] 800 mg PO Q6HR PRN #30 tablet 01/25/19 Unknown Rx oxyCODONE /ACETAMINOPHEN [Percocet 1 tab PO Q4HR #30 tab 01/25/19 Unknown Rx 5/325] Active Medications Celecoxib (Celebrex) 200 mg PO PREOP NR Stop: 01/25/19 23:59 Last Admin: 01/25/19 07:15 Dose: 200 mg Documented by: Famotidine (Pepcid) 20 mg IV PREOP NR Stop: 01/25/19 23:59 Last Admin: 01/25/19 07:25 Dose: 20 mg Documented by: Gabapentin (Neurontin) 300 mg PO PREOP NR Stop: 01/25/19 23:59 Last Admin: 01/25/19 07:15 Dose: 300 mg Documented by: Lactated Ringer's (Lactated Ringers) 1,000 mls @ 100 mls/hr IV DIRECT ERIKA Last Admin: 01/25/19 07:15 Dose: 100 mls/hr Documented by: Cefazolin Sodium (Ancef/Sterile Water 2 Gm/20 Ml) 2 gm in 20 mls @ 80 mls/hr IV PREOP NR; Protocol Stop: 01/25/19 10:00 Midazolam HCl (Versed) 2 mg IV PREOP NR Stop: 01/25/19 23:59 Last Admin: 01/25/19 07:25 Dose: 2 mg Documented by: - Brief post op/procedure progress note Date of procedure: 01/25/19 Pre-op diagnosis: desires sterilization Post-op diagnosis: same Procedure: Laparoscopic bilateral salpingectomy Estimated blood loss: minimal Pathology: list (left and right fallopian tubes) Specimen disposition: to lab Condition: stable - Hospital course Hospital course: Patient admitted for above-stated procedure. Patient underwent procedure that was not complicated. Patient will be discharged home when she has met discharge criteria in the PACU. Patient will follow-up in the office in 1 week for postoperative check. - Disposition Condition at discharge: Good Disposition: DC-01 TO HOME OR SELFCARE - Discharge Diagnoses (1) Encounter for sterilization Status: Acute Short Stay Discharge Plan Activity: no restrictions, advance as tolerated Weight Bearing Status: Weight Bear as Tolerated Diet: regular Wound: open to air Additional Instructions: CALL DR VALDEZ'S OFFICE FOR FOLLOW-OP APPOINTMENT OR FOR AND QUESTIONS OR CONCERNS RELATED TO YOUR PROCEDURE. PRESCRIPTIONS GIVEN FOR PAIN TAKE DIRECTED. Follow up with: HERMINIO BOUCHER MD [Primary Care Provider] - 7 Days Forms: Outpatient Surgery DC Inst. Prescriptions: Ibuprofen [Motrin 800 MG tab] 800 mg PO Q6HR PRN #30 tablet PRN Reason: Pain, Moderate (4-6) oxyCODONE /ACETAMINOPHEN [Percocet 5/325] 1 tab PO Q4HR #30 tab
[2019-01-25] MEDS ORDERED: PERCOCET 5/325 PO PRN (09:07)
--- NOTE | 2019-01-25 09:11 | Post Anesthesia Evaluation ---
- Post Anesthesia Evaluation Patient Participated: Yes Airway Patent: Yes Stable Respiratory Function: Yes Nausea/Vomiting: No Temp > 96.8F: Yes Pain Manageable: Yes Adequeate Hydration: Yes Anesthesia Complications: No Block Receding Appropriately: Not Applicable Patient on Ventilator: No
[2019-01-25 09:38] VITALS: BP 140/82
== END 2019-01-25 10:05 | disposition home or self-care (01) ==
LOC: OR 05:47
PROVIDERS: ATTEND Obstetrics & Gynecology
DX: Z30.2 Encounter for sterilization (principal); E11.9 Type 2 diabetes mellitus without complications; Z72.89 Other problems related to lifestyle; Z87.891 Personal history of nicotine dependence; Z79.899 Other long term (current) drug therapy; Z83.3 Family history of diabetes mellitus; Z82.49 Family history of ischemic heart disease and other diseases of the circulatory system
CPT/HCPCS: 58670; 81025; 82962; 88302; J0690; J2001; J2250; J2704; J2710; J3010; J7120